=== PATIENT | male | born 1985 | race African-American/Black ===

== ENCOUNTER 2017-12-10 06:00 | Emergency (ER) | payer OTHER ==
[2017-12-10] MEDS: DIPHENHYDRAMINE 50 MG INJ IV (06:40)
[2017-12-10] MEDS: METOCLOPRAMIDE 10 MG INJ IV (06:40)
[2017-12-10] MEDS: KETOROLAC 15 MG INJ IV (06:41)
[2017-12-10] MEDS: morphine 4 MG/ML VIAL IV (07:32)
[2017-12-10] MEDS: LORAZEPAM 2 MG INJ IM (07:33)
== END 2017-12-10 08:47 | disposition home or self-care (01) ==
LOC: E/R 06:00
DX: G44.329 Chronic post-traumatic headache, not intractable (principal); F41.9 Anxiety disorder, unspecified; R07.9 Chest pain, unspecified; Z76.0 Encounter for issue of repeat prescription
CPT/HCPCS: 93005; 96372; 96374; 96375; 99284-25